=== PATIENT | female | born 1955 | race Caucasian/White ===

== ENCOUNTER 2019-10-21 11:59 | Inpatient (IN) | payer OTHER ==
[~2019-10-21] VITALS: Ht 167.6 cm; Wt 85.3 kg
[~2019-10-21 11:59] MED LIST: LASIX20 MG PO; LIPITOR20 MG PO; METFORMIN HCL500 MG PO; NEURONTIN300 MG PO; TOPROL XL25 M1 PO; VASOTEC20 M1 PO
--- NOTE | 2019-10-21 12:18 | NUR ---
FAMILIAR REFIERE DIARREAS VOMITOS DESDE HACE HERON SEMANA SE CLIFF S/V YSE UBAC EN AREA DE OBSERVACION
--- NOTE | 2019-10-21 13:19 | NUR ---
SE ORIENTA A PTE SOBRE PROCESO DE VENOPUNCION, ALESSANDRA DE MUESTRAS, ADMINISTRACION DE MEDIACMENTOS. PTE REFIERE ENTENDER INF MICHAEL POR RN DE TURNO. SE MANTIENE PTE BAJO OBSERVACION RECIBIENDO TRATAMIENTO MEDICO.
--- NOTE | 2019-10-21 15:10 | NUR ---
SE RECIBE PTE ALERTA Y ORIENTADA X 3 ESFERAS EN CAMA CON BARANDAS ELEVADAS POR SEGURIDAD. BUEN PATRON RESPIRATORIO. RECIBIENDO IV'S 0.9NSS BAJANDO A 70ML/HR AREA DE VENOPUNCION DELVIN DE EDEMA Y ERITEMA. PENDIENTE RESULTADOS DE LABORATORIOS Y DARIEN X. SE MANTIENE EN OBSERVACION POR CAMBIOS EN CONDICION MEDICA. 1630- DR.HERNANDEZ BARNEY EVALUA PTE.
== END 2019-10-25 11:24 | disposition left against medical advice (07) | DRG 194 ==
LOC: ER 11:59 → SEC-K 17:05 → MEDI 17:05 → SURH 10-23 01:03 → MEDJ 10-23 18:32
PROVIDERS: ADMIT Internal Medicine; ATTEND Internal Medicine
PROC: 8E0ZXY6 Isolation (ICD-10-PCS; principal; 2019-10-22)
PROC: 4A033R1 Measurement of Arterial Saturation, Peripheral, Percutaneous Approach (ICD-10-PCS; 2019-10-23)
PROC: BW21Y0Z Computerized Tomography (CT Scan) of Abdomen and Pelvis using Other Contrast, Unenhanced and Enhanced (ICD-10-PCS; 2019-10-23)
PROC: 3E0F7GC Introduction of Other Therapeutic Substance into Respiratory Tract, Via Natural or Artificial Opening (ICD-10-PCS; 2019-10-24)
PROC: 4A12X4Z Monitoring of Cardiac Electrical Activity, External Approach (ICD-10-PCS; 2019-10-25)
DX: J18.8 Other pneumonia, unspecified organism (principal); N39.0 Urinary tract infection, site not specified; E86.0 Dehydration; J45.909 Unspecified asthma, uncomplicated; Z20.828 Contact with and (suspected) exposure to other viral communicable diseases

== ENCOUNTER 2022-11-22 19:17 | Emergency (ER) | payer OTHER ==
[~2022-11-22] VITALS: Ht 162.6 cm; Wt 89.8 kg
[2022-11-22] MEDS ORDERED: AVAPRO75 MG PO (19:30)
[2022-11-22] MEDS ORDERED: HUMOLIN N (19:32)
== END 2022-11-23 00:34 | disposition home or self-care (01) ==
LOC: ER 19:17
PROVIDERS: Nurse Practitioner Family
DX: R53.81 Other malaise (principal); Z20.822 Contact with and (suspected) exposure to COVID-19; E11.65 Type 2 diabetes mellitus with hyperglycemia; Z79.4 Long term (current) use of insulin; E03.9 Hypothyroidism, unspecified; I10 Essential (primary) hypertension; I34.1 Nonrheumatic mitral (valve) prolapse; I35.0 Nonrheumatic aortic (valve) stenosis
CPT/HCPCS: 36415; 93005; 96365; 96366; 99284; J3490; J7042

== ENCOUNTER 2022-11-26 03:54 | Emergency (ER) | payer OTHER ==
[~2022-11-26] VITALS: Ht 162.6 cm; Wt 91.2 kg
[~2022-11-26 03:54] MED LIST changes: +AVAPRO75 MG PO; +HUMOLIN N
[2022-11-26] MEDS ORDERED: PEPCID AC20 MG PO (07:03)
[2022-11-26] MEDS ORDERED: ONDANSETRON ODT8 MG PO (07:03)
== END 2022-11-26 07:24 | disposition home or self-care (01) ==
LOC: ER 03:54
PROVIDERS: General Practice
DX: K52.9 Noninfective gastroenteritis and colitis, unspecified (principal); R11.2 Nausea with vomiting, unspecified
CPT/HCPCS: 36415; 96365; 96366; 99284; J2405; J3490; J7030

== ENCOUNTER 2023-01-09 16:12 | Emergency (ER) | payer OTHER ==
[~2023-01-09] VITALS: Ht 160 cm; Wt 88.5 kg
[~2023-01-09 16:12] MED LIST changes: +ONDANSETRON ODT8 MG PO; +PEPCID AC20 MG PO
[2023-01-09] MEDS ORDERED: DOLOGESIC 500-1 EACH PO (22:17)
[2023-01-09] MEDS ORDERED: CYCLOBENZAPRINE10 MG PO (22:17)
== END 2023-01-09 22:28 | disposition home or self-care (01) ==
LOC: ER 16:12
DX: S09.8XXA Other specified injuries of head, initial encounter (principal); W01.0XXA Fall on same level from slipping, tripping and stumbling without subsequent striking against object, initial encounter; Y93.89 Activity, other specified; Y92.018 Other place in single-family (private) house as the place of occurrence of the external cause; M54.2 Cervicalgia; S49.82XA Other specified injuries of left shoulder and upper arm, initial encounter; E11.9 Type 2 diabetes mellitus without complications; Z79.4 Long term (current) use of insulin; E03.9 Hypothyroidism, unspecified; I10 Essential (primary) hypertension
CPT/HCPCS: 70450; 72040; 72100; 73030; 73060; 96372; 99284; J1100; J2360

== ENCOUNTER 2023-02-01 19:15 | Inpatient (IN) | payer OTHER ==
[~2023-02-01] VITALS: Ht 162.6 cm; Wt 87.1 kg
[~2023-02-01 19:15] MED LIST changes: +CYCLOBENZAPRINE10 MG PO; +DOLOGESIC 500-1 EACH PO
[2023-02-01 21:18] LABS: URINE APPEARANCE Clear; URINE BILIRRUBIN Negative (NEGATIVE); URINE BLOOD Negative; URINE COLOR Yellow; URINE GLUCOSE Negative (NEGATIVE); URINE LEUKOCYTE Trace; URINE NITRATE Negative; URINE PROTEIN Trace (NEGATIVE); URINE UROBILINOGEN 0.2 E.U./dl
[2023-02-01 21:22] LABS: URINE BACTERIA 275.7 uL (0.0-1933); URINE WBC 5.1 uL (0.0-23.2)
[2023-02-01 21:24] LABS: HEMOGLOBIN 11.4 g/dL (12.0-15.00); MEAN CELL VOLUME 88.2 fL (80.00-100.00); MEAN CORPUSCULAR HEMOGLOBIN 29.5 pg (27.00-32.0); MEAN CORPUSCULAR HGB CONC 33.5 g/dl (32.0-36.0); PLATELET COUNT 453 K/uL (150-450); RED BLOOD COUNT 3.85 M/uL (4.00-6.00); RED CELL DISTRIBUTION WIDTH 13.1 % (11.5-14.5)
[2023-02-01 21:39] LABS: CALCIUM 9.7 mg/dL (8.5-10.1); CREATININE SERUM 2.1 mg/dL (0.55-1.02); GFR 23.64; POTASSIUM 3.92 mEq/L (3.5-5.1)
[2023-02-02] MEDS ORDERED: OMEPRAZOLE20 M1 (11:20)
[2023-02-02] MEDS ORDERED: METFORMIN HCL500 M4 (11:20)
[2023-02-02] MEDS ORDERED: MONTELUKAST SOD10 MG (11:20)
[2023-02-02] MEDS ORDERED: ROSUVASTATIN CA10 MG (11:20)
[2023-02-02] MEDS ORDERED: SIMETHICONE180 MG (11:20)
[2023-02-02] MEDS ORDERED: HUMULIN N100 UNIT/2 (11:21)
[2023-02-02] MEDS ORDERED: IRBESARTAN-HCT1 EAC1 (11:21)
[2023-02-02] MEDS ORDERED: PROVENTIL HFA6.7 GM (11:21)
[2023-02-03 08:06] LABS: HEMOGLOBIN 9.4 g/dL (12.0-15.00); MEAN CELL VOLUME 87.3 fL (80.00-100.00); MEAN CORPUSCULAR HEMOGLOBIN 29.3 pg (27.00-32.0); MEAN CORPUSCULAR HGB CONC 33.5 g/dl (32.0-36.0); PLATELET COUNT 394 K/uL (150-450); RED CELL DISTRIBUTION WIDTH 13.5 % (11.5-14.5)
[2023-02-03 08:08] LABS: ALBUMIN 2.4 gm/dL (3.4-5.0); BILIRUBIN TOTAL 0.32 mg/dL (0.3-1.2); CREATININE SERUM 1.59 mg/dL (0.55-1.02); GFR 32.58; GLOBULINA 3.5 G/DL (2.4-3.5); MAGNESIUM 1.9 mg/dL (1.8-2.4); PHOSPHOROUS 2.9 mg/dL (2.5-4.9); POTASSIUM 4.08 mEq/L (3.5-5.1); TOTAL PROTEIN 5.9 gm/dL (6.4-8.2); TSH 0.475 uIU/mL (0.358-3.74)
[2023-02-03 08:12] LABS: ERYTHROCYTE SEDIMENTATION RATE > 130 mm/hr
[2023-02-03 08:14] LABS: C-REACTIVE PROTEIN 10.2 MG/DL (0.00-0.29)
[2023-02-03 08:53] LABS: ALBUMIN 2.5 gm/dL (3.4-5.0); CALCIUM 8.1 mg/dL (8.5-10.1); CREATININE SERUM 1.59 mg/dL (0.55-1.02); GFR 32.58; POTASSIUM 4.07 mEq/L (3.5-5.1); URIC ACID 8.1 mg/dL (2.5-7.5)
== END 2023-02-03 14:49 | disposition home or self-care (01) | DRG 683 ==
LOC: ER 19:15 → MEDJ 02-02 01:49
PROVIDERS: Internal Medicine Nephrology; Nurse Practitioner Family; ADMIT Internal Medicine; ATTEND Internal Medicine
PROC: BW21ZZZ Computerized Tomography (CT Scan) of Abdomen and Pelvis (ICD-10-PCS; principal; 2023-02-02)
DX: N17.9 Acute kidney failure, unspecified (principal); N20.1 Calculus of ureter; R65.10 Systemic inflammatory response syndrome (SIRS) of non-infectious origin without acute organ dysfunction; N13.9 Obstructive and reflux uropathy, unspecified; E11.9 Type 2 diabetes mellitus without complications; Z79.1 Long term (current) use of non-steroidal anti-inflammatories (NSAID); Z20.822 Contact with and (suspected) exposure to COVID-19; D64.9 Anemia, unspecified

== ENCOUNTER 2023-07-08 11:12 | Emergency (ER) | payer OTHER ==
[~2023-07-08] VITALS: Ht 152.4 cm; Wt 88.0 kg
[~2023-07-08 11:12] MED LIST changes: +HUMULIN N100 UNIT/2; +IRBESARTAN-HCT1 EAC1; +METFORMIN HCL500 M4; +MONTELUKAST SOD10 MG; +OMEPRAZOLE20 M1; +PROVENTIL HFA6.7 GM; +ROSUVASTATIN CA10 MG; +SIMETHICONE180 MG
== END 2023-07-08 13:46 | disposition left against medical advice (07) ==
LOC: ER 11:13
DX: Z53.21 Procedure and treatment not carried out due to patient leaving prior to being seen by health care provider (principal)

== ENCOUNTER 2023-12-29 03:49 | Emergency (ER) | payer OTHER ==
[~2023-12-29] VITALS: Ht 162.6 cm; Wt 87.1 kg
[2023-12-29] MEDS ORDERED: RINGERS SOLUTION,LACTATED 1,000 ML IV STA (04:54)
[2023-12-29] MEDS ORDERED: PROMETHAZINE HCL 50 MG/ML AMPUL IM STA (04:54)
[2023-12-29] MEDS ORDERED: MEPERIDINE HCL/PF 50 MG/ML VIAL IM STA (04:54)
[2023-12-29] MEDS ORDERED: ONDANSETRON HCL 2 MG/ML VIAL IV STA (04:55)
[2023-12-29] MEDS ORDERED: HYOSCYAMINE SULFATE 0.125 MG TAB.SUBL SL ONE (05:00)
[2023-12-29 05:48] LABS: HEMATOCRIT 35.7 % (36.0-45.00); MEAN CELL VOLUME 87.5 fL (80.00-100.00); MEAN CORPUSCULAR HEMOGLOBIN 29.3 pg (27.00-32.0); MEAN CORPUSCULAR HGB CONC 33.5 g/dl (32.0-36.0); PLATELET COUNT 364 K/uL (150-450); RED BLOOD COUNT 4.08 M/uL (4.00-6.00); RED CELL DISTRIBUTION WIDTH 13.9 % (11.5-14.5)
[2023-12-29 06:44] LABS: ALBUMIN 3.4 gm/dL (3.4-5.0); BILIRUBIN TOTAL 0.2 mg/dL (0.3-1.2); CALCIUM 9.5 mg/dL (8.5-10.1); CREATININE SERUM 1.3 mg/dL (0.55-1.02); GFR 40.98; GLOBULINA 4.6 G/DL (2.4-3.5); POTASSIUM 3.88 mEq/L (3.5-5.1)
[2023-12-29 07:29] LABS: PH,URINE 5.5 (5.0-8.0); URINE APPEARANCE Cloudy; URINE BILIRRUBIN Negative (NEGATIVE); URINE BLOOD Moderate; URINE COLOR Yellow; URINE KETONE Negative (NEGATIVE); URINE LEUKOCYTE Trace; URINE NITRATE Negative; URINE PROTEIN 30 (NEGATIVE); URINE UROBILINOGEN 0.2 E.U./dl
[2023-12-29 07:30] LABS: URINE BACTERIA 259.4 uL (0.0-1933); URINE RBC 113.1 uL (0.0-20.8); URINE WBC 17.9 uL (0.0-23.2)
[2023-12-29 08:13] LABS: URINE CAST 0.15 uL (0.0-1.40); URINE GLUCOSE >=1000 MG/DL (NEGATIVE)
[2023-12-29 08:14] LABS: URINE CRYSTALS MANY /HPF
[2023-12-29] MEDS ORDERED: ZOFRAN8 MG PO (08:46)
[2023-12-29] MEDS ORDERED: TAMS0.4C PO (08:46)
[2023-12-29] MEDS ORDERED: KETO10TA2 PO (08:46)
[2023-12-29] MEDS ORDERED: BACTRIM DS TAB1 EACH PO (08:46)
[2023-12-29] MEDS ORDERED: PEPCID AC20 MG PO (08:46)
== END 2023-12-29 09:47 | disposition home or self-care (01) ==
LOC: ER 03:51
DX: N20.1 Calculus of ureter (principal); E11.65 Type 2 diabetes mellitus with hyperglycemia; Z79.4 Long term (current) use of insulin; N20.0 Calculus of kidney; K76.0 Fatty (change of) liver, not elsewhere classified; K57.30 Diverticulosis of large intestine without perforation or abscess without bleeding
CPT/HCPCS: 36415; 74176; 96365; 96372; 99284; J2250; J2405; J3490

== ENCOUNTER 2024-07-22 16:20 | Inpatient (IN) | payer OTHER ==
[~2024-07-22] VITALS: Ht 162.6 cm; Wt 89.8 kg
[~2024-07-22 16:20] MED LIST changes: +BACTRIM DS TAB1 EACH PO; +KETO10TA2 PO; +TAMS0.4C PO; +ZOFRAN8 MG PO
--- NOTE | 2024-07-22 17:18 | NUR ---
PTE ALERTA Y ORIENTADA X3 EN COMANIA DE FAMILIAR, REFIERE TENER DOLOR PELCIVO QUE SE IRRADIA HACIA ATRAS, EL CUAL PTE ASOCIA CON DOLOR DE PIEDRAS, PUES LAS BAIN TENIDO ANTERIORMENTE. NOTIFICA MULTIPLES VOMITOS. SE MIDEN SV Y SE REALIZA DXT EL CUAL RESULTA 300MG/DL. SE MIDEN SV Y SE UBICA.
[2024-07-22] MEDS ORDERED: PROMETHAZINE HCL 25 MG/ML AMPUL ONE (18:25)
[2024-07-22] MEDS ORDERED: KETOROLAC TROMETHAMINE 60 MG VIAL IM ONE ×2 (18:25→18:30)
[2024-07-22] MEDS ORDERED: CIPROFLOXACIN IN 5 % DEXTROSE 400 MG/200 ML PIGGYBAG IV ONE ×2 (18:26→18:30)
[2024-07-22] MEDS ORDERED: PROMETHAZINE HCL 25 MG/ML AMPUL IM ONE (18:30)
[2024-07-22] MEDS ORDERED: SODIUM CHLORIDE 0.45 % 500 ML IV ONE (18:30)
[2024-07-22 19:02] LABS: HEMATOCRIT 38.3 % (36.0-45.00); HEMOGLOBIN 12.8 g/dL (12.0-15.00); MEAN CELL VOLUME 86.4 fL (80.00-100.00); MEAN CORPUSCULAR HEMOGLOBIN 28.9 pg (27.00-32.0); MEAN CORPUSCULAR HGB CONC 33.4 g/dl (32.0-36.0); PLATELET COUNT 333 K/uL (150-450); RED BLOOD COUNT 4.43 M/uL (4.00-6.00); RED CELL DISTRIBUTION WIDTH 13.8 % (11.5-14.5)
--- NOTE | 2024-07-22 19:20 | NUR ---
PTE ALERTA Y OREINTADA X3 SE ORIENTA SOBRE TRATAMIENTO MEDICO SE ADMINISTRA MEDICAMENTO DEXTER ORDEN MEDICA, SE CLIFF MUESTRAS DE WM BAJO MEDIDAS ASEPTICAS Y SE CANALIZA DELVIN DE EDEMA NI ERITEMA.
[2024-07-22] MEDS ORDERED: POTASSIUM BICARBONATE/CIT AC 25 MEQ TABLET.EFF PO STA (19:23)
[2024-07-22 19:30] LABS: CALCIUM 9.8 mg/dL (8.5-10.1); CREATININE SERUM 1.18 mg/dL (0.55-1.02); GFR 45.69; POTASSIUM 4.63 mEq/L (3.5-5.1)
[2024-07-22 21:46] LABS: URINE APPEARANCE Cloudy; URINE BILIRRUBIN Negative (NEGATIVE); URINE BLOOD Large; URINE COLOR Yellow; URINE KETONE 15 (NEGATIVE); URINE LEUKOCYTE Trace; URINE NITRATE Negative; URINE UROBILINOGEN 0.2 E.U./dl
[2024-07-22 21:51] LABS: URINE BACTERIA 56.3 uL (0.0-1933); URINE EPITHELIAL CELLS 11.5 uL (0.0-38.8); URINE RBC 827.7 uL (0.0-20.8)
[2024-07-22] MEDS ORDERED: 0.9 % SODIUM CHLORIDE 1,000 ML IV SCH (22:15)
[2024-07-22 22:18] LABS: URINE GLUCOSE >=1000 MG/DL (NEGATIVE); URINE PROTEIN 100 (NEGATIVE)
[2024-07-22] MEDS ORDERED: TAMSULOSIN HCL 0.4 MG CAP PO SCH (22:18)
[2024-07-22] MEDS ORDERED: CEFTRIAXONE SODIUM 2,000 MG in 0.9 % SODIUM CHLORIDE 100 ML IV SCH (22:19)
[2024-07-22] MEDS ORDERED: ONDANSETRON HCL 4 MG in 0.9 % SODIUM CHLORIDE 50 ML IV PRN (22:30)
[2024-07-22] MEDS ORDERED: ACETAMINOPHEN 500 MG GEL..CAP PO PRN (22:30)
[2024-07-22] MEDS ORDERED: INSULIN LISPRO 1,000 UNIT/10 ML UNITS SUBCUTANEO PRN (22:30)
[2024-07-22] MEDS ORDERED: DEXTROSE 50 % IN WATER 0.5 G/ML DISP.SYRIN IV PRN (22:30)
[2024-07-22] MEDS ORDERED: KETOROLAC TROMETHAMINE 15 MG VIAL IU PRN (22:30)
[2024-07-22] MEDS ORDERED: CEFTRIAXONE SODIUM 2,000 MG VIAL ONE ×2 (23:43→23:52)
[2024-07-22] MEDS ORDERED: TAMSULOSIN HCL 0.4 MG CAP PO ONE (23:43)
[2024-07-23 01:03] LABS: INR 1.05; PARTIAL THROMBOPLASTIN TIME 24.5 SECONDS (22.0-34.0); PROTHROMBIN TIME 11.4 SECONDS (9.0-11.5)
[2024-07-23 05:30] VITALS: BP 122/69; O2SAT 96
[2024-07-23] MEDS ORDERED: KETOROLAC TROMETHAMINE 30 MG VIAL IV PRN (07:00)
[2024-07-23] MEDS ORDERED: DEXTROSE 50 % IN WATER 0.5 G/ML VIAL IV PRN (07:00)
[2024-07-23] MEDS ORDERED: IRBESARTAN 150 MG TABLET PO SCH (09:00)
[2024-07-23] MEDS ORDERED: FAMOTIDINE/PF 20 MG in 0.9 % SODIUM CHLORIDE 8 ML IV PUSH SCH (09:00)
[2024-07-23 09:17] VITALS: BP 139/70; O2SAT 97
[2024-07-23 19:15] VITALS: BP 140/81
[2024-07-24 02:46] VITALS: BP 128/66; O2SAT 95
[2024-07-24 08:19] LABS: HEMATOCRIT 35.9 % (36.0-45.00); HEMOGLOBIN 12.2 g/dL (12.0-15.00); MEAN CELL VOLUME 86.9 fL (80.00-100.00); MEAN CORPUSCULAR HEMOGLOBIN 29.5 pg (27.00-32.0); MEAN CORPUSCULAR HGB CONC 33.9 g/dl (32.0-36.0); PLATELET COUNT 313 K/uL (150-450); RED BLOOD COUNT 4.13 M/uL (4.00-6.00)
[2024-07-24 08:40] VITALS: BP 136/70; O2SAT 95
[2024-07-24 09:28] LABS: ALBUMIN 3.4 gm/dL (3.4-5.0); BILIRUBIN TOTAL 0.59 mg/dL (0.3-1.2); CALCIUM 8.8 mg/dL (8.5-10.1); CREATININE SERUM 1.42 mg/dL (0.55-1.02); GFR 36.9; GLOBULINA 3.8 G/DL (2.4-3.5); MAGNESIUM 1.8 mg/dL (1.8-2.4); PHOSPHOROUS 3.2 mg/dL (2.5-4.9); POTASSIUM 4.58 mEq/L (3.5-5.1); TOTAL PROTEIN 7.2 gm/dL (6.4-8.2)
[2024-07-24 09:34] LABS: C-REACTIVE PROTEIN 3.83 MG/DL (0.00-0.29)
[2024-07-24] MEDS ORDERED: TAMS0.4C PO (09:47)
[2024-07-24] MEDS ORDERED: PANTOPRAZOLE SO40 MG PO (09:47)
[2024-07-24] MEDS ORDERED: TAMSULOSIN HCL0.4 MG PO (09:48)
[2024-07-24] MEDS ORDERED: LEVOFLOXACIN500 MG PO (09:49)
[2024-07-24] MEDS ORDERED: TRAM1TAB98 PO (09:50)
== END 2024-07-24 11:33 | disposition home or self-care (01) | DRG 694 ==
LOC: ER 16:21 → SEC-K 23:15 → MEDJ 23:15
PROVIDERS: General Practice; Internal Medicine Infectious Disease; ADMIT Internal Medicine; ATTEND Internal Medicine
PROC: BW21ZZZ Computerized Tomography (CT Scan) of Abdomen and Pelvis (ICD-10-PCS; principal; 2024-07-22)
DX: N13.2 Hydronephrosis with renal and ureteral calculous obstruction (principal); N13.8 Other obstructive and reflux uropathy; N39.0 Urinary tract infection, site not specified; N28.1 Cyst of kidney, acquired; E03.9 Hypothyroidism, unspecified; I10 Essential (primary) hypertension; E11.9 Type 2 diabetes mellitus without complications; Z79.4 Long term (current) use of insulin; Z79.84 Long term (current) use of oral hypoglycemic drugs